=== PATIENT | male | born 1965 | race African-American/Black ===

== ENCOUNTER 2021-11-25 18:51 | Emergency (ER) | payer BC, OTHER ==
[~2021-11-25] VITALS: Ht 188 cm; Wt 111.1 kg
[~2021-11-25 18:51] MED LIST: NORCO 5-325 TA1 EACH PO; VALIUM5 MG PO
[2021-11-25 21:05] VITALS: BP 161/86
== END 2021-11-26 02:32 | disposition left against medical advice (07) ==
LOC: ER 18:51
DX: R19.7 Diarrhea, unspecified (principal); Z53.21 Procedure and treatment not carried out due to patient leaving prior to being seen by health care provider